=== PATIENT | male | born 2000 | race Caucasian/White ===

== ENCOUNTER 2020-10-28 13:56 | Inpatient (IN) | payer OTHER ==
[~2020-10-28] VITALS: Ht 182.9 cm; Wt 78.0 kg
[2020-10-28 14:27] VITALS: BP 119/65
[2020-10-28] MEDS ORDERED: OxyCODONE HCL/ACETAMINOPHEN 5-325 MG TABLET PO PRN (14:30)
[2020-10-28] MEDS ORDERED: OxyCODONE HCL 5 MG IR TABLET ONE (15:06)
[2020-10-28] MEDS ORDERED: ONDANSETRON HCL 4 MG TABLET PO PRN (15:30)
[2020-10-28] MEDS ORDERED: ACETAMINOPHEN 325 MG TABLET PO PRN (15:30)
[2020-10-28] MEDS ORDERED: OxyCODONE HCL 5 MG IR TABLET PO PRN (15:30)
[2020-10-28 15:36] VITALS: BP 135/71
[2020-10-28] MEDS: OxyCODONE HCL 5 MG IR TABLET PO PRN ×2 (15:57→20:14)
[2020-10-28] MEDS: METHOCARBAMOL 500 MG TABLET PO SCH ×2 (17:10→21:19)
[2020-10-28] MEDS: IBUPROFEN 600 MG TABLET PO SCH ×2 (17:11→23:28)
[2020-10-28] MEDS: ACETAMINOPHEN 325 MG TABLET PO SCH ×2 (17:15→23:27)
[2020-10-28] MEDS ORDERED: IBUPROFEN 600 MG TABLET PO SCH (18:00)
[2020-10-28] MEDS ORDERED: OxyCODONE HCL 20 MG ER TABLET PO SCH (21:00)
[2020-10-28] MEDS: DOCUSATE SODIUM 100 MG CAPSULE PO SCH (21:19)
[2020-10-28] MEDS: SENNA 187 MG TABLET PO SCH (21:19)
[2020-10-28] MEDS: MELATONIN 5 MG TABLET PO PRN (22:09)
[2020-10-28] MEDS: OxyCODONE HCL 20 MG ER TABLET PO SCH (22:09)
[2020-10-29] VITALS: BP 110/50
[2020-10-29] MEDS: OxyCODONE HCL 5 MG IR TABLET PO PRN ×5 (03:51→23:45)
[2020-10-29] MEDS: ACETAMINOPHEN 325 MG TABLET PO SCH ×4 (06:11→23:45)
[2020-10-29] MEDS: IBUPROFEN 600 MG TABLET PO SCH ×4 (06:11→23:45)
[2020-10-29 06:17] LABS: BASOPHILS % (AUTO) 0.9 % (0.0-2.0); EOSINOPHILS % (AUTO) 1.3 % (1.0-6.0); HEMATOCRIT 29.1 % (41-53); HEMOGLOBIN 9.7 g/dL (13.5-17.5); LYMPHOCYTES # (AUTO) 2.9 K/uL (1.0-4.8); LYMPHOCYTES % (AUTO) 28.7 % (22.0-44.0); MEAN CORPUSCULAR HEMOGLOBIN 32.1 pg (26.0-34.0); MEAN CORPUSCULAR HGB CONC 33.2 G/dL (31.0-37.0); MEAN CORPUSCULAR VOLUME 97 fL (80-100); MONOCYTES # (AUTO) 1.1 K/uL (0.1-1.0); MONOCYTES % (AUTO) 10.6 % (2.0-9.0); NEUTROPHILS # (AUTO) 5.9 K/uL (1.8-7.7); NEUTROPHILS % (AUTO) 58.5 % (40.0-70.0); RED BLOOD CELL COUNT(AUTO) 3.01 MIL/uL (4.50-5.90); RED CELL DISTRIBUTION WIDTH 14.5 % (11.5-14.5)
[2020-10-29 06:20] LABS: ALANINE AMINOTRANSFERASE 24 U/L (12-78); ALBUMIN 3.6 g/dL (3.4-5.0); ALKALINE PHOSPHATASE 121 U/L (46-116); ANION GAP 10 mmol/L (8-16); ASPARTATE AMINOTRANSFERASE 28 U/L (15-37); BILIRUBIN,TOTAL 0.5 mg/dL (0.1-1.0); CALCIUM, TOTAL 10.2 mg/dL (8.8-10.5); CARBON DIOXIDE 27 mmol/L (22-29); CHLORIDE 101 mmol/L (98-107); CREATININE 0.78 mg/dL (0.60-1.30); GLOMERULAR FILTR. RATE CALC > 60 mL/min (>60); GLUCOSE,RANDOM 98 mg/dL (70-110); POTASSIUM 4.3 mmol/L (3.5-5.1); SODIUM SERUM 138 mmol/L (136-145); TOTAL PROTEIN, SERUM 8.2 g/dL (6.4-8.2); UREA NITROGEN, BLOOD 18 mg/dL (7-18)
[2020-10-29 07:45] VITALS: BP 124/66
[2020-10-29] MEDS: OxyCODONE HCL 20 MG ER TABLET PO SCH ×2 (07:48→20:55)
[2020-10-29] MEDS: METHOCARBAMOL 500 MG TABLET PO SCH ×3 (07:48→20:55)
[2020-10-29] MEDS: DOCUSATE SODIUM 100 MG CAPSULE PO SCH ×2 (07:48→20:55)
[2020-10-29] MEDS: MULTIVITAMINS WITH MINERALS, THERAPEUTIC TABLET PO SCH (07:48)
[2020-10-29] MEDS: ASPIRIN 325 MG TABLET PO SCH (07:48)
[2020-10-29] MEDS: ASCORBIC ACID 500 MG TABLET PO SCH (07:48)
[2020-10-29 07:49] LABS: PLATELET COUNT (AUTO) 471 K/uL (150-450)
[2020-10-29] MEDS: POLYETHYLENE GLYCOL 3350 17 GM PACKET PO SCH (07:55)
[2020-10-29 16:00] VITALS: BP 123/65
[2020-10-29] MEDS: MELATONIN 5 MG TABLET PO PRN (20:55)
[2020-10-29] MEDS: SENNA 187 MG TABLET PO SCH (20:55)
[2020-10-29 23:45] VITALS: BP 126/71
[2020-10-30] MEDS: OxyCODONE HCL 5 MG IR TABLET PO PRN ×3 (04:25→18:53)
[2020-10-30] MEDS: IBUPROFEN 600 MG TABLET PO SCH ×3 (06:28→19:18)
[2020-10-30] MEDS: ACETAMINOPHEN 325 MG TABLET PO SCH ×3 (06:28→19:17)
[2020-10-30 07:20] VITALS: BP 132/62
[2020-10-30] MEDS: MULTIVITAMINS WITH MINERALS, THERAPEUTIC TABLET PO SCH (07:28)
[2020-10-30] MEDS: ASPIRIN 325 MG TABLET PO SCH (07:28)
[2020-10-30] MEDS: POLYETHYLENE GLYCOL 3350 17 GM PACKET PO SCH (07:29)
[2020-10-30] MEDS: DOCUSATE SODIUM 100 MG CAPSULE PO SCH ×2 (07:29→21:19)
[2020-10-30] MEDS: OxyCODONE HCL 20 MG ER TABLET PO SCH ×2 (07:29→21:19)
[2020-10-30] MEDS: ASCORBIC ACID 500 MG TABLET PO SCH (07:29)
[2020-10-30] MEDS: METHOCARBAMOL 500 MG TABLET PO SCH ×3 (07:29→21:19)
[2020-10-30 15:00] VITALS: BP 117/59
[2020-10-30] MEDS: SENNA 187 MG TABLET PO SCH (21:19)
[2020-10-31 00:30] VITALS: BP 132/66
[2020-10-31] MEDS: IBUPROFEN 600 MG TABLET PO SCH ×4 (00:46→19:21)
[2020-10-31] MEDS: ACETAMINOPHEN 325 MG TABLET PO SCH ×4 (00:46→19:21)
[2020-10-31] MEDS: OxyCODONE HCL 5 MG IR TABLET PO PRN ×4 (02:39→22:43)
[2020-10-31 08:00] VITALS: BP 113/56
[2020-10-31] MEDS: POLYETHYLENE GLYCOL 3350 17 GM PACKET PO SCH (08:12)
[2020-10-31] MEDS: OxyCODONE HCL 20 MG ER TABLET PO SCH ×2 (08:12→20:34)
[2020-10-31] MEDS: ASPIRIN 325 MG TABLET PO SCH (08:12)
[2020-10-31] MEDS: DOCUSATE SODIUM 100 MG CAPSULE PO SCH ×2 (08:12→20:32)
[2020-10-31] MEDS: METHOCARBAMOL 500 MG TABLET PO SCH ×3 (08:13→20:32)
[2020-10-31] MEDS: MULTIVITAMINS WITH MINERALS, THERAPEUTIC TABLET PO SCH (08:13)
[2020-10-31] MEDS: ASCORBIC ACID 500 MG TABLET PO SCH (08:13)
[2020-10-31 15:51] VITALS: BP 106/66
[2020-10-31] MEDS: SENNA 187 MG TABLET PO SCH (20:32)
[2020-10-31 22:46] VITALS: BP 110/54
[2020-11-01] MEDS: ACETAMINOPHEN 325 MG TABLET PO SCH ×4 (01:11→19:21)
[2020-11-01] MEDS: IBUPROFEN 600 MG TABLET PO SCH ×4 (01:11→19:20)
[2020-11-01] MEDS: OxyCODONE HCL 5 MG IR TABLET PO PRN ×4 (04:06→22:35)
[2020-11-01 09:05] VITALS: BP 125/70
[2020-11-01] MEDS: POLYETHYLENE GLYCOL 3350 17 GM PACKET PO SCH (09:06)
[2020-11-01] MEDS: ASPIRIN 325 MG TABLET PO SCH (09:06)
[2020-11-01] MEDS: DOCUSATE SODIUM 100 MG CAPSULE PO SCH ×2 (09:06→21:36)
[2020-11-01] MEDS: METHOCARBAMOL 500 MG TABLET PO SCH ×3 (09:07→21:36)
[2020-11-01] MEDS: ASCORBIC ACID 500 MG TABLET PO SCH (09:07)
[2020-11-01] MEDS: MULTIVITAMINS WITH MINERALS, THERAPEUTIC TABLET PO SCH (09:07)
[2020-11-01] MEDS: OxyCODONE HCL 20 MG ER TABLET PO SCH ×2 (10:23→21:36)
[2020-11-01 15:48] VITALS: BP 117/64
[2020-11-01] MEDS: SENNA 187 MG TABLET PO SCH (21:36)
[2020-11-01 23:35] VITALS: BP 141/75
[2020-11-02] MEDS: IBUPROFEN 600 MG TABLET PO SCH ×5 (00:21→22:57)
[2020-11-02] MEDS: ACETAMINOPHEN 325 MG TABLET PO SCH ×5 (01:24→22:57)
[2020-11-02] MEDS: OxyCODONE HCL 5 MG IR TABLET PO PRN ×4 (03:13→22:57)
[2020-11-02] MEDS: ASPIRIN 325 MG TABLET PO SCH (07:10)
[2020-11-02 08:15] VITALS: BP 123/54
[2020-11-02] MEDS: OxyCODONE HCL 20 MG ER TABLET PO SCH ×2 (08:41→20:35)
[2020-11-02] MEDS: POLYETHYLENE GLYCOL 3350 17 GM PACKET PO SCH ×2 (08:41→08:44)
[2020-11-02] MEDS: DOCUSATE SODIUM 100 MG CAPSULE PO SCH ×2 (08:41→20:35)
[2020-11-02] MEDS: MULTIVITAMINS WITH MINERALS, THERAPEUTIC TABLET PO SCH (08:41)
[2020-11-02] MEDS: ASCORBIC ACID 500 MG TABLET PO SCH (08:41)
[2020-11-02] MEDS: METHOCARBAMOL 500 MG TABLET PO SCH ×3 (08:42→20:35)
[2020-11-02 15:20] VITALS: BP_SYST 118; BP_SYST 188; BP_DIAS 55; BP_DIAS 85
[2020-11-02] MEDS: SENNA 187 MG TABLET PO SCH (20:35)
[2020-11-02 22:57] VITALS: BP 115/71
[2020-11-03] MEDS: OxyCODONE HCL 5 MG IR TABLET PO PRN ×4 (03:00→21:38)
[2020-11-03] MEDS: ACETAMINOPHEN 325 MG TABLET PO SCH ×4 (06:00→18:54)
[2020-11-03] MEDS: IBUPROFEN 600 MG TABLET PO SCH ×4 (06:00→18:54)
[2020-11-03 07:25] VITALS: BP 113/60
[2020-11-03] MEDS: POLYETHYLENE GLYCOL 3350 17 GM PACKET PO SCH (08:19)
[2020-11-03] MEDS: ASPIRIN 325 MG TABLET PO SCH (08:19)
[2020-11-03] MEDS: DOCUSATE SODIUM 100 MG CAPSULE PO SCH ×2 (08:19→20:13)
[2020-11-03] MEDS: ASCORBIC ACID 500 MG TABLET PO SCH (08:20)
[2020-11-03] MEDS: METHOCARBAMOL 500 MG TABLET PO SCH ×3 (08:20→20:13)
[2020-11-03] MEDS: OxyCODONE HCL 20 MG ER TABLET PO SCH ×2 (08:20→20:13)
[2020-11-03] MEDS: MULTIVITAMINS WITH MINERALS, THERAPEUTIC TABLET PO SCH (08:20)
[2020-11-03 08:42] LABS: BASOPHILS % (AUTO) 0.5 % (0.0-2.0); HEMATOCRIT 30.8 % (41-53); HEMOGLOBIN 10.3 g/dL (13.5-17.5); LYMPHOCYTES # (AUTO) 2.7 K/uL (1.0-4.8); LYMPHOCYTES % (AUTO) 40.2 % (22.0-44.0); MEAN CORPUSCULAR HEMOGLOBIN 32.3 pg (26.0-34.0); MEAN CORPUSCULAR HGB CONC 33.5 G/dL (31.0-37.0); MEAN CORPUSCULAR VOLUME 97 fL (80-100); MONOCYTES # (AUTO) 0.7 K/uL (0.1-1.0); MONOCYTES % (AUTO) 10.9 % (2.0-9.0); NEUTROPHILS # (AUTO) 3.1 K/uL (1.8-7.7); NEUTROPHILS % (AUTO) 46.4 % (40.0-70.0); PLATELET COUNT (AUTO) 365 K/uL (150-450); RED BLOOD CELL COUNT(AUTO) 3.19 MIL/uL (4.50-5.90); RED CELL DISTRIBUTION WIDTH 14.5 % (11.5-14.5)
[2020-11-03 16:00] VITALS: BP 125/57
[2020-11-03] MEDS: SENNA 187 MG TABLET PO SCH (20:13)
[2020-11-03] MEDS ORDERED: OXYC20TA58 PO (20:43)
[2020-11-03] MEDS ORDERED: ERGO500054 PO (20:43)
[2020-11-03] MEDS ORDERED: MULT-1239 PO (20:43)
[2020-11-03] MEDS ORDERED: OXYC5 PO (20:43)
[2020-11-03] MEDS ORDERED: DOCU-275 PO (20:43)
[2020-11-03] MEDS ORDERED: POLY17PO47 PO (20:43)
[2020-11-03] MEDS ORDERED: IBUP-2070 PO (20:43)
[2020-11-03] MEDS ORDERED: ASPI-989 PO (20:43)
[2020-11-03] MEDS ORDERED: ASCO500 PO (20:43)
[2020-11-03] MEDS ORDERED: ACET-2247 PO (20:43)
[2020-11-03] MEDS ORDERED: METH-372 PO (20:43)
[2020-11-04] VITALS: BP 121/63
[2020-11-04] MEDS: IBUPROFEN 600 MG TABLET PO SCH ×3 (00:09→12:10)
[2020-11-04] MEDS: ACETAMINOPHEN 325 MG TABLET PO SCH ×3 (00:09→12:10)
[2020-11-04] MEDS: OxyCODONE HCL 5 MG IR TABLET PO PRN ×2 (03:27→07:29)
[2020-11-04 07:29] VITALS: BP 122/78
[2020-11-04] MEDS ORDERED: ERGOCALCIFEROL (VIT D2) 50,000 UNITS [1,250 MCG] CAPSULE PO SCH (09:00)
[2020-11-04] MEDS: POLYETHYLENE GLYCOL 3350 17 GM PACKET PO SCH ×2 (09:00→09:30)
[2020-11-04] MEDS: DOCUSATE SODIUM 100 MG CAPSULE PO SCH (09:30)
[2020-11-04] MEDS: METHOCARBAMOL 500 MG TABLET PO SCH (09:30)
[2020-11-04] MEDS: ASPIRIN 325 MG TABLET PO SCH (09:31)
[2020-11-04] MEDS: MULTIVITAMINS WITH MINERALS, THERAPEUTIC TABLET PO SCH (09:31)
[2020-11-04] MEDS: OxyCODONE HCL 20 MG ER TABLET PO SCH (09:31)
[2020-11-04] MEDS: ASCORBIC ACID 500 MG TABLET PO SCH (09:31)
[2020-11-04] MEDS ORDERED: OXYC10TA59 PO (11:35)
== END 2020-11-04 12:15 | disposition home or self-care (01) | DRG 964 ==
LOC: 2WR 15:19
PROVIDERS: ADMIT Physical Medicine & Rehabilitation; ATTEND Physical Medicine & Rehabilitation
DX: S82.201A Unspecified fracture of shaft of right tibia, initial encounter for closed fracture (principal); S72.301A Unspecified fracture of shaft of right femur, initial encounter for closed fracture; S82.001A Unspecified fracture of right patella, initial encounter for closed fracture; S32.10XA Unspecified fracture of sacrum, initial encounter for closed fracture; S52.502A Unspecified fracture of the lower end of left radius, initial encounter for closed fracture; S72.401A Unspecified fracture of lower end of right femur, initial encounter for closed fracture; E46 Unspecified protein-calorie malnutrition; D64.9 Anemia, unspecified; R53.81 Other malaise; S92.111A Displaced fracture of neck of right talus, initial encounter for closed fracture; K59.03 Drug induced constipation; E55.9 Vitamin D deficiency, unspecified; T40.605A Adverse effect of unspecified narcotics, initial encounter; Z53.20 Procedure and treatment not carried out because of patient's decision for unspecified reasons; Z91.19 Patient's noncompliance with other medical treatment and regimen; Z68.23 Body mass index [BMI] 23.0-23.9, adult; V23.4XXA Motorcycle driver injured in collision with car, pick-up truck or van in traffic accident, initial encounter; Y93.55 Activity, bike riding; Y92.488 Other paved roadways as the place of occurrence of the external cause; Y99.8 Other external cause status
CPT/HCPCS: 87081; 93970; 97110; 97116; 97162; 97167; 97530; 97535; 99366; A9575